=== PATIENT | female | born 1955 | race Caucasian/White ===

== ENCOUNTER 2023-01-11 10:47 | Outpatient (AMB) | payer MEDICARE, MEDICAID, SELFPAY ==
[2023-01-11 11:07] VITALS: BP 135/63; PULSE 91; O2SAT 94; BMI 26.2
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
== END 2023-01-11 11:31 | disposition home or self-care (01) ==
PROVIDERS: PCP Physician Assistant; Visit Provider Nurse Practitioner Family
DX: M51.36 Other intervertebral disc degeneration, lumbar region (principal); M47.817 Spondylosis without myelopathy or radiculopathy, lumbosacral region; M54.16 Radiculopathy, lumbar region; M53.3 Sacrococcygeal disorders, not elsewhere classified; G89.29 Other chronic pain; Z98.890 Other specified postprocedural states
CPT/HCPCS: 99204

== ENCOUNTER → 2023-01-11 10:47 | Outpatient (BNVA) | payer MEDICARE, MEDICAID, SELFPAY | PROVIDERS: PCP Physician Assistant; Visit Provider Nurse Practitioner Family | DX: M51.36 Other intervertebral disc degeneration, lumbar region (principal); M47.817 Spondylosis without myelopathy or radiculopathy, lumbosacral region; M54.16 Radiculopathy, lumbar region; M53.3 Sacrococcygeal disorders, not elsewhere classified; G89.29 Other chronic pain; Z98.890 Other specified postprocedural states | CPT/HCPCS: 99202 ==

== ENCOUNTER 2023-02-23 08:03 | Day surgery (SDC) | payer MEDICARE, MEDICAID, SELFPAY ==
[2023-02-20 16:12] VITALS: BMI 26.1
--- NOTE | 2023-02-22 10:49 | HO.ANESPROP2 ---
HPI - Anesthesia Eval Consult details Narrative: 67yo F for Ganglion Impar Block Last cardiology office visit 08/2022 without symptoms of angina or CHF. No changes to treatment plan. [facility] Active Problems Active Problems: All Active Problems (Updated 01/11/23 @ 12:15 by SAEID العلي) History of pelvic surgery (Acute) Sacroiliac joint pain (Acute) Coccygeal pain, chronic (Acute) Lumbar radiculitis (Acute) Lumbar and sacral spondylarthritis (Acute) Lumbar degenerative disc disease (Acute) Past Medical History Medical History (Updated 02/23/23 @ 08:42 by Kiesha Villasenor RN) COPD (chronic obstructive pulmonary disease) Bilateral cataracts Diabetes Carotid stenosis HLD (hyperlipidemia) Smoker Cardiomyopathy Diabetes CAD (coronary artery disease) History of pelvic fracture Heart disease Arthritis Hypertension Emphysema lung Surgical History Surgical History (Updated 02/23/23 @ 08:41 by Kiesha Villasenor RN) History of back surgery Social History Social History Alcohol intake: current Alcohol intake frequency: holidays/special occasions only Patient Tobacco Use Status: Former Tobacco user Quit Date: 10/20/22 Tobacco use type: Cigarette Substance Use Type: Caffiene Meds Allergies Allergy/AdvReac Type Severity Reaction Status Date / Time No Known Allergies Allergy Verified 01/11/23 11:10 Home Medications Medication Instructions Recorded Confirmed Last Taken Type aspirin 81 mg capsule 81 mg PO DAILY 01/11/23 Unknown History cyclobenzaprine 10 mg tablet 10 mg PO BEDTIME 01/11/23 Unknown History diclofenac potassium 25 mg tablet mg PO 01/11/23 Unknown History ibuprofen 600 mg tablet 600 mg PO Q8H PRN Pain 01/11/23 Unknown History sumatriptan succinate 25 mg tablet 25 mg PO Q2-4H PRN headaches 01/11/23 Unknown History amoxicillin 875 mg-potassium 1 tab PO BID 02/23/23 Unknown History clavulanate 125 mg tablet atorvastatin 80 mg tablet 80 mg PO DAILY 02/23/23 Unknown History azithromycin 250 mg tablet 250 mg PO DAILY 02/23/23 Unknown History bupropion HCl 150 mg 24 hr tablet, 300 mg PO DAILY 02/23/23 Unknown History extended release celecoxib 100 mg capsule 100 mg PO BID PRN pain 02/23/23 Unknown History celecoxib 100 mg capsule 100 mg PO BID PRN pain 02/23/23 Unknown History clindamycin HCl 300 mg capsule 300 mg PO TID 02/23/23 Unknown History ezetimibe 10 mg tablet 10 mg PO DAILY 02/23/23 Unknown History fluticasone fur. 100 mcg-umeclid 1 ea inhalation DAILY 02/23/23 Unknown History 62.5 mcg-vilant 25 mcg inhalat.powder (Trelegy Ellipta) ipratropium 20 mcg-albuterol 100 1 puff inhalation Q4H PRN sob 02/23/23 Unknown History mcg/actuation mist for inhalation (Combivent Respimat) levalbuterol HCl 0.31 mg/3 mL 0.31 mg inhalation Q4H PRN wheezing 02/23/23 Unknown History solution for nebulization lisinopril 5 mg tablet 5 mg PO DAILY 02/23/23 Unknown History lorazepam 0.5 mg tablet 0.5 mg PO DAILY PRN Anxiety 02/23/23 Unknown History metformin 500 mg tablet,extended 500 mg PO QAM 02/23/23 Unknown History release 24 hr metformin 500 mg tablet,extended 500 mg PO QAM 02/23/23 Unknown History release 24 hr mirtazapine 15 mg tablet 15 mg PO BEDTIME 02/23/23 Unknown History roflumilast 500 mcg tablet 500 mcg PO DAILY 02/23/23 Unknown History sumatriptan succinate 25 mg tablet 25 mg PO Q6H PRN migraine 02/23/23 Unknown History varenicline 0.5 mg (11)-1 mg (42) ea PO DIRECTED 02/23/23 Unknown History tablets in a dose pack zolpidem 5 mg tablet 2.5 mg PO BEDTIME PRN Insomnia 02/23/23 Unknown History Exam Exam Date and Time: February 22, 2023 1049 Height,Weight and Vital Signs: Height 5 ft 1 in Weight 62.596 kg Narrative Narrative: ECHO 2020 Nml BiV size and function with no hemodynamically signif valve disease Nuc Stress 2019 unremarkable Assessment and Plan Assessment Anesthesia Assessment: Chart Reviewed
--- NOTE | ~2023-02-23 | FL_ITS ---
EXAMINATION: XR FLUOROSCOPY WITH IMAGES CLINICAL INFORMATION: Ganglion impar. COMPARISON: None available. TECHNIQUE: Fluoroscopy Supervised By: Dr. Ji Mathew. Fluoroscopy Time: 0.1 minute. Cumulative Dose: 3.89 mGy. DAP: 1.04 Gycm2. Images: 3. FINDINGS: Images demonstrate needle placement and contrast injection adjacent to the distal sacrum/coccyx. There may be an old right inferior pubic ramus fracture. FL/FL guidance in OR IMPRESSION: Fluoroscopy guidance for pain management procedure.
[2023-02-23 08:59] VITALS: BP 129/69; PULSE 97; RESP 16; TEMP 37.3; O2SAT 95
[2023-02-23] MEDS: Lactated Ringers 1,000 ML 100 ML IVCONT (09:16)
--- NOTE | 2023-02-23 09:27 | P.CONAN_ITS ---
[facility] Active Problems Active Problems: All Active Problems (Updated 02/23/23 @ 08:42 by Kiesha Villasenor RN) History of pelvic surgery (Acute) Sacroiliac joint pain (Acute) Coccygeal pain, chronic (Acute) Lumbar radiculitis (Acute) Lumbar and sacral spondylarthritis (Acute) Lumbar degenerative disc disease (Acute) Past Medical History Medical History (Updated 02/23/23 @ 08:42 by Kiesha Villasenor RN) COPD (chronic obstructive pulmonary disease) Bilateral cataracts Diabetes Carotid stenosis HLD (hyperlipidemia) Smoker Cardiomyopathy Diabetes CAD (coronary artery disease) History of pelvic fracture Heart disease Arthritis Hypertension Emphysema lung Family History Family history of problems with anesthesia: No Surgical History Surgical History (Updated 02/23/23 @ 08:41 by Kiesha Villasenor RN) History of back surgery History of Problems with Anesthesia: No Social History Social History Alcohol intake: current Alcohol intake frequency: holidays/special occasions only Patient Tobacco Use Status: Former Tobacco user Quit Date: 10/20/22 Tobacco use type: Cigarette Smoked in Last 30 Days: No Use of substances other than those prescribed or required for medical reasons: Yes Substance Use Type: Caffiene Are you DNR?: No Advance Directives: No Advance Directives Information Provided: Yes Meds Allergies Allergy/AdvReac Type Severity Reaction Status Date / Time No Known Allergies Allergy Verified 01/11/23 11:10 Active Medications: Current Medications Lactated Ringer's (Lr) 1,000 mls @ 100 mls/hr IVCONT .Q10H RIGO Last Admin: 02/23/23 09:16 Dose: 100 mls/hr Home Medications Medication Instructions Recorded Confirmed Last Taken Type aspirin 81 mg capsule 81 mg PO DAILY 01/11/23 Unknown History cyclobenzaprine 10 mg tablet 10 mg PO BEDTIME 01/11/23 Unknown History diclofenac potassium 25 mg tablet mg PO 01/11/23 Unknown History ibuprofen 600 mg tablet 600 mg PO Q8H PRN Pain 01/11/23 Unknown History sumatriptan succinate 25 mg tablet 25 mg PO Q2-4H PRN headaches 01/11/23 Unknown History amoxicillin 875 mg-potassium 1 tab PO BID 02/23/23 Unknown History clavulanate 125 mg tablet atorvastatin 80 mg tablet 80 mg PO DAILY 02/23/23 Unknown History azithromycin 250 mg tablet 250 mg PO DAILY 02/23/23 Unknown History bupropion HCl 150 mg 24 hr tablet, 300 mg PO DAILY 02/23/23 Unknown History extended release celecoxib 100 mg capsule 100 mg PO BID PRN pain 02/23/23 Unknown History celecoxib 100 mg capsule 100 mg PO BID PRN pain 02/23/23 Unknown History clindamycin HCl 300 mg capsule 300 mg PO TID 02/23/23 Unknown History ezetimibe 10 mg tablet 10 mg PO DAILY 02/23/23 Unknown History fluticasone fur. 100 mcg-umeclid 1 ea inhalation DAILY 02/23/23 Unknown History 62.5 mcg-vilant 25 mcg inhalat.powder (Trelegy Ellipta) ipratropium 20 mcg-albuterol 100 1 puff inhalation Q4H PRN sob 02/23/23 Unknown History mcg/actuation mist for inhalation (Combivent Respimat) levalbuterol HCl 0.31 mg/3 mL 0.31 mg inhalation Q4H PRN wheezing 02/23/23 Unknown History solution for nebulization lisinopril 5 mg tablet 5 mg PO DAILY 02/23/23 Unknown History lorazepam 0.5 mg tablet 0.5 mg PO DAILY PRN Anxiety 02/23/23 Unknown History metformin 500 mg tablet,extended 500 mg PO QAM 02/23/23 Unknown History release 24 hr metformin 500 mg tablet,extended 500 mg PO QAM 02/23/23 Unknown History release 24 hr mirtazapine 15 mg tablet 15 mg PO BEDTIME 02/23/23 Unknown History roflumilast 500 mcg tablet 500 mcg PO DAILY 02/23/23 Unknown History sumatriptan succinate 25 mg tablet 25 mg PO Q6H PRN migraine 02/23/23 Unknown History varenicline 0.5 mg (11)-1 mg (42) ea PO DIRECTED 02/23/23 Unknown History tablets in a dose pack zolpidem 5 mg tablet 2.5 mg PO BEDTIME PRN Insomnia 02/23/23 Unknown History Exam Exam Date and Time: February 23, 2023926 Height,Weight and Vital Signs: Height 5 ft 1 in Weight 62.596 kg Last Vital Signs Temp 99.1 F 02/23/23 08:59 Pulse 97 02/23/23 08:59 Resp 16 02/23/23 08:59 BP 129/69 02/23/23 08:59 Pulse Ox 95 02/23/23 08:59 O2 Del Method Room Air 02/23/23 08:59 Airway Mallampati Class: III TM Dist: >3cm Neck ROM: Full Partial: Upper Heart: RRR Lungs: CTA Assessment and Plan Assessment Anesthesia Assessment: Anesthesia Plan Discussed Final Anesthetic Review Family History of Problems with Anesthesia: No History of Problems with Anesthesia: No NPO: Yes ASA Class: III Final Preanesthetic Review: Meds/Allgs Chart Reviewed, Consent Obtained/Reviewed and Anes Risks/Benef Reviewed Patient Risk: Low Procedure Risk: Low Anesthetic Plan Anesthetic Plan: MAC: Disposition: Standard PACU
--- NOTE | 2023-02-23 09:48 | MHC.SHP ---
Pre-Procedural Eval Section A Date of Service: 02/23/23 The patient is an INPATIENT: No Changes since office visit: Yes Patient answered all questions The History & Physical has been completed within 30 days and I have reviewed it.: No Section B Chief Complaint: Sacrococcygeal disorders,chronic pain, Details of Present Illness: as above Relevant Family History (Specify if Yes): No Relevant Social History: None Present Medications: see Short Stay Collaborative assessment Medical History: No relevant PMH History of Previous Operations: No relevant previous surgery Allergies: Allergies Allergy/AdvReac Type Severity Reaction Status Date / Time No Known Allergies Allergy Verified 01/11/23 11:10 Review of Systems Sugical H&P ROS: Negative: Constitution, Cardiovascular, Respiratory, Neurological, Psychiatric, Hem-Onc, Allergic/Immunologic, Gastrointestinal, Genitourinary, Musculoskeletal, Integumentary, Endocrine and Eyes/Ears/Nose/Throat Exam Surgical H&P Exam: Normal: HEENT, Normal: Heart, Normal: Lungs, Normal: Extremities, Normal: Abdomen, Normal: Skin and Normal: Neurological Plan Diagnosis/Plan: Unchanged I have reviewed the history and physical and performed a pertinent physical examination on my patient. No changes have occurred unless specified. Time Spent With Patient Time: Total time managing care of this patient today ____ minutes.
[2023-02-23 10:35] VITALS: BP 136/73; PULSE 99; RESP 16; TEMP 36.4; O2SAT 99
--- NOTE | 2023-02-23 10:38 | PM.OP ---
Brief Operative Note Date of Service: 02/23/23 Pre-op diagnosis: coccydynia Post-op diagnosis: same Procedure: ganglion impar block Surgeon: Ji Mathew MD Anesthesia: MAC Was an Supervisor Channel Process used for this Procedure?: No Estimated blood loss (mL): 0 Condition: stable Disposition: PACU
--- NOTE | 2023-02-23 10:44 | P.OP_ITS ---
Operative Note Operative Note Date of Service: 02/23/23 Narrative: therapeutic ganglion impar block. Informed consent was explained thoroughly to the patient. All questions about benefits and risks for the procedure were answered. Patient came to the operating room and was positioned prone on the operating table with the pillow under the pelvis. Time-out was performed delineating correct site and side of the procedure name and date of of the patient, needs for antibiotics which is none a risks of DVT and need for DVT prophylaxis. [employer] monitors were applied and patient was deeply sedated. The lower back and buttocks of the patient were prepped with ChloraPrep prepped and draped with sterile utility towels. C-arm was brought over the operating field and sq picture of patient's Coccygeal spine was demonstrated on the screen. The disc between the 3rd and 2nd coccygeal vertebra was chosen as the target of the needle advancement. The projection of the target to the skin was injected with lidocaine 2%. After that 22 gauge 3-1/2 inch needle was inserted through the skin wheal and advanced to were the disc between the 2nd and 3rd coccygeal vertebra. When the needle gently touched the disc the positio n of the C-arm was changed for lateral view. Under lateral view the needle was advanced to were the retro pelvic space. When the needle cleared 1-2 mm beyond the silhouette of the coccygeal spine on the lateral view and remain strictly in midline position on the anterior posterior view injection of the contrast was performed which delineated retro pelvic space. After that treatment solution co ntaining ropivacaine 0.5% mixed with Kenalog 40 mg total amount of 6 cc was injected into the needle. The needle was withdrawn sterile dressing was applied. The patient tolerated procedure well.
[2023-02-23 10:50] VITALS: BP 147/77; PULSE 93; RESP 18; TEMP 36.6; O2SAT 94
[2023-02-23 11:05] VITALS: BP 137/76; PULSE 89; RESP 20; TEMP 36.5; O2SAT 95
--- NOTE | 2023-02-23 13:26 | HO.POSTANES ---
Post Anesthesia Evaluation Post Anesthesia Evaluation Date of Service: 02/23/23 Vital Signs: Vital Signs Temp Pulse Resp BP Pulse Ox O2 Del Method 02/23/23 11:05 97.7 F 89 20 137/76 95 Room Air 02/23/23 10:50 97.8 F 93 18 147/77 H 94 Room Air 02/23/23 10:35 97.5 F 99 16 136/73 99 Room Air 02/23/23 08:59 99.1 F 97 16 129/69 95 Room Air Anesthesia: Monitored Mental Status: Awake Pain Control: Satisfactory Nausea/Vomiting: None Hydration: Adequate Anesthesia-Related Issues: No Anes. Related Issues
== END 2023-02-23 11:25 | disposition home or self-care (01) ==
PROVIDERS: PCP Pediatrics; Visit Provider Anesthesiology
PROC: (CPT 64999; principal; 2023-02-23 10:00)
DX: M53.3 Sacrococcygeal disorders, not elsewhere classified (principal); G89.29 Other chronic pain; M54.16 Radiculopathy, lumbar region; M47.817 Spondylosis without myelopathy or radiculopathy, lumbosacral region; M51.36 Other intervertebral disc degeneration, lumbar region; J44.9 Chronic obstructive pulmonary disease, unspecified; E11.9 Type 2 diabetes mellitus without complications; I25.10 Atherosclerotic heart disease of native coronary artery without angina pectoris; I10 Essential (primary) hypertension; E78.5 Hyperlipidemia, unspecified; Z79.1 Long term (current) use of non-steroidal anti-inflammatories (NSAID); Z79.82 Long term (current) use of aspirin; Z79.899 Other long term (current) drug therapy; Z79.51 Long term (current) use of inhaled steroids; Z79.84 Long term (current) use of oral hypoglycemic drugs; Z87.891 Personal history of nicotine dependence; Z98.890 Other specified postprocedural states
CPT/HCPCS: 64999; J2250; J2795; J3301; Q9967

== ENCOUNTER → 2023-02-23 08:03 | Outpatient (BNV) | payer MEDICARE, MEDICAID, SELFPAY | PROVIDERS: PCP Pediatrics; Visit Provider Anesthesiology | DX: M53.3 Sacrococcygeal disorders, not elsewhere classified (principal) | CPT/HCPCS: 64999 ==

== ENCOUNTER 2023-03-30 08:48 | Outpatient (AMB) | payer MEDICARE, MEDICAID, SELFPAY ==
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
[2023-03-30 08:55] VITALS: BP 165/78; PULSE 76; O2SAT 96; BMI 27.4
== END 2023-03-30 09:18 | disposition home or self-care (01) ==
PROVIDERS: PCP Physician Assistant; Visit Provider Nurse Practitioner Family
DX: M53.3 Sacrococcygeal disorders, not elsewhere classified (principal); M54.16 Radiculopathy, lumbar region; M47.817 Spondylosis without myelopathy or radiculopathy, lumbosacral region; M51.36 Other intervertebral disc degeneration, lumbar region; M54.51 Vertebrogenic low back pain
CPT/HCPCS: 99214

== ENCOUNTER → 2023-03-30 08:48 | Outpatient (BNVA) | payer MEDICARE, MEDICAID, SELFPAY | PROVIDERS: PCP Physician Assistant; Visit Provider Nurse Practitioner Family | DX: M53.3 Sacrococcygeal disorders, not elsewhere classified (principal); M54.16 Radiculopathy, lumbar region; M47.817 Spondylosis without myelopathy or radiculopathy, lumbosacral region; M51.36 Other intervertebral disc degeneration, lumbar region; M54.51 Vertebrogenic low back pain | CPT/HCPCS: 99212 ==

== ENCOUNTER 2023-05-10 14:37 | Outpatient (AMB) | payer MEDICARE, MEDICAID, SELFPAY ==
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
[2023-05-10 14:50] VITALS: BP 126/59; PULSE 80; O2SAT 100; BMI 26.3
== END 2023-05-10 15:07 | disposition home or self-care (01) ==
PROVIDERS: PCP Physician Assistant; Visit Provider Nurse Practitioner Family
DX: M53.3 Sacrococcygeal disorders, not elsewhere classified (principal); M47.817 Spondylosis without myelopathy or radiculopathy, lumbosacral region; M51.36 Other intervertebral disc degeneration, lumbar region; M46.1 Sacroiliitis, not elsewhere classified
CPT/HCPCS: 99214

== ENCOUNTER → 2023-05-10 14:37 | Outpatient (BNVA) | payer MEDICARE, MEDICAID, SELFPAY | PROVIDERS: PCP Physician Assistant; Visit Provider Nurse Practitioner Family | DX: M53.3 Sacrococcygeal disorders, not elsewhere classified (principal); M47.817 Spondylosis without myelopathy or radiculopathy, lumbosacral region; M51.36 Other intervertebral disc degeneration, lumbar region; M46.1 Sacroiliitis, not elsewhere classified | CPT/HCPCS: 99212 ==

== ENCOUNTER 2023-06-01 05:54 | Day surgery (SDC) | payer MEDICARE, MEDICAID, SELFPAY ==
[2023-05-30 14:04] VITALS: BMI 26.3
--- NOTE | 2023-05-31 10:19 | HO.ANESPROP2 ---
Documented by User: Beckie Pelaez NP 05/31/23 10:22 HPI - Anesthesia Eval Consult details Narrative: 67yo F for Left Therapeutic Sacroiliac Joint Steroid Injection s/p ganglion impar block 02/2023 with MAC Follows [facility]. Stable at last office visit 03/2023 CAD with NSTEMI 2018, Hx takatsubo 2018 (EF normalized) PMFSH Active Problems Active Problems: All Active Problems (Updated 05/31/23 @ 08:35 by Cari Adan) Sacroiliitis (Acute) Vertebrogenic low back pain (Acute) History of pelvic surgery (Acute) Sacroiliac joint pain (Acute) Coccygeal pain, chronic (Acute) Lumbar radiculitis (Acute) Lumbar and sacral spondylarthritis (Acute) Lumbar degenerative disc disease (Acute) Past Medical History Medical History (Updated 05/31/23 @ 08:35 by Cari Adan) NSTEMI (non-ST elevated myocardial infarction) COPD (chronic obstructive pulmonary disease) Bilateral cataracts Diabetes Carotid stenosis HLD (hyperlipidemia) Smoker Cardiomyopathy Diabetes CAD (coronary artery disease) History of pelvic fracture Heart disease Arthritis Hypertension Emphysema lung Family History Family history of problems with anesthesia: No Surgical History Surgical History (Updated 05/30/23 @ 13:53 by Caitlyn Vergara RN) History of surgery History of back surgery History of Problems with Anesthesia: No Social History Social History Alcohol intake: current Alcohol intake frequency: does not drink Patient Tobacco Use Status: Former Tobacco user Quit Date: 10/20/22 Tobacco use type: Cigarette Substance Use Type: Caffiene Are you DNR?: No Advance Directives: No Advance Directives Information Provided: Yes Nutrition Risks: No Nutritional Risk Meds Allergies Allergy/AdvReac Type Severity Reaction Status Date / Time No Known Allergies Allergy Verified 05/10/23 14:52 Home Medications Medication Instructions Recorded Confirmed Last Taken Type aspirin 81 mg capsule 81 mg PO DAILY 01/11/23 05/30/23 05/25/23 History cyclobenzaprine 10 mg tablet 10 mg PO BEDTIME 01/11/23 Unknown History diclofenac potassium 25 mg tablet mg PO 01/11/23 Unknown History ibuprofen 600 mg tablet 600 mg PO Q8H PRN Pain 01/11/23 05/24/23 History atorvastatin 80 mg tablet 80 mg PO DAILY 02/23/23 05/30/23 Unknown History bupropion HCl 150 mg 24 hr tablet, 300 mg PO DAILY 02/23/23 05/30/23 Unknown History extended release celecoxib 100 mg capsule 100 mg PO BID PRN pain 02/23/23 05/30/23 05/31/23 History ezetimibe 10 mg tablet 10 mg PO DAILY 02/23/23 05/30/23 Unknown History fluticasone fur. 100 mcg-umeclid 1 ea inhalation DAILY 02/23/23 05/30/23 Unknown History 62.5 mcg-vilant 25 mcg inhalat.powder (Trelegy Ellipta) ipratropium 20 mcg-albuterol 100 1 puff inhalation Q4H PRN sob 02/23/23 05/30/23 Unknown History mcg/actuation mist for inhalation (Combivent Respimat) levalbuterol HCl 0.31 mg/3 mL 0.31 mg inhalation Q4H PRN wheezing 02/23/23 05/30/23 Unknown History solution for nebulization lisinopril 5 mg tablet 5 mg PO DAILY 02/23/23 05/30/23 Unknown History metformin 500 mg tablet,extended 500 mg PO QAM 02/23/23 05/30/23 Unknown History release 24 hr mirtazapine 15 mg tablet 15 mg PO BEDTIME 02/23/23 Unknown History roflumilast 500 mcg tablet 500 mcg PO DAILY 02/23/23 05/30/23 Unknown History sumatriptan succinate 25 mg tablet 25 mg PO Q6H PRN migraine 02/23/23 05/30/23 Unknown History varenicline 0.5 mg (11)-1 mg (42) ea PO DIRECTED 02/23/23 Unknown History tablets in a dose pack zolpidem 5 mg tablet 2.5 mg PO BEDTIME PRN Insomnia 02/23/23 05/30/23 Unknown History omeprazole 20 mg capsule,delayed 20 mg PO DAILY 05/30/23 05/30/23 Unknown History release Exam Height,Weight and Vital Signs: Height 5 ft 1 in Weight 63.049 kg Narrative Narrative: EKG 03/2023 NSR @ 76 ECHO 2020 Nml BiV size and function without hemodynamically significant valve disease Assessment and Plan Assessment Anesthesia Assessment: Chart Reviewed Final Anesthetic Review Family History of Problems with Anesthesia: No History of Problems with Anesthesia: No Documented by User: Aguila Hill MD 06/01/23 07:42 [facility] Past Medical History Medical History (Updated 05/31/23 @ 08:35 by Cari Adan) NSTEMI (non-ST elevated myocardial infarction) COPD (chronic obstructive pulmonary disease) Bilateral cataracts Diabetes Carotid stenosis HLD (hyperlipidemia) Smoker Cardiomyopathy Diabetes CAD (coronary artery disease) History of pelvic fracture Heart disease Arthritis Hypertension Emphysema lung Functional capacity: independent ambulation Surgical History Surgical History (Updated 05/30/23 @ 13:53 by Caitlyn Vergara RN) History of surgery History of back surgery Social History Social History Alcohol intake: current Alcohol intake frequency: does not drink Patient Tobacco Use Status: Former Tobacco user Quit Date: 10/20/22 Tobacco use type: Cigarette Substance Use Type: Caffiene Are you DNR?: No Advance Directives: No Advance Directives Information Provided: Yes Nutrition Risks: No Nutritional Risk Meds Allergies Allergy/AdvReac Type Severity Reaction Status Date / Time No Known Allergies Allergy Verified 05/10/23 14:52 Home Medications Medication Instructions Recorded Confirmed Last Taken Type aspirin 81 mg capsule 81 mg PO DAILY 01/11/23 05/30/23 05/25/23 History cyclobenzaprine 10 mg tablet 10 mg PO BEDTIME 01/11/23 Unknown History diclofenac potassium 25 mg tablet mg PO 01/11/23 Unknown History ibuprofen 600 mg tablet 600 mg PO Q8H PRN Pain 01/11/23 05/24/23 History atorvastatin 80 mg tablet 80 mg PO DAILY 02/23/23 05/30/23 Unknown History bupropion HCl 150 mg 24 hr tablet, 300 mg PO DAILY 02/23/23 05/30/23 Unknown History extended release celecoxib 100 mg capsule 100 mg PO BID PRN pain 02/23/23 05/30/23 05/31/23 History ezetimibe 10 mg tablet 10 mg PO DAILY 02/23/23 05/30/23 Unknown History fluticasone fur. 100 mcg-umeclid 1 ea inhalation DAILY 02/23/23 05/30/23 Unknown History 62.5 mcg-vilant 25 mcg inhalat.powder (Trelegy Ellipta) ipratropium 20 mcg-albuterol 100 1 puff inhalation Q4H PRN sob 02/23/23 05/30/23 Unknown History mcg/actuation mist for inhalation (Combivent Respimat) levalbuterol HCl 0.31 mg/3 mL 0.31 mg inhalation Q4H PRN wheezing 02/23/23 05/30/23 Unknown History solution for nebulization lisinopril 5 mg tablet 5 mg PO DAILY 02/23/23 05/30/23 Unknown History metformin 500 mg tablet,extended 500 mg PO QAM 02/23/23 05/30/23 Unknown History release 24 hr mirtazapine 15 mg tablet 15 mg PO BEDTIME 02/23/23 Unknown History roflumilast 500 mcg tablet 500 mcg PO DAILY 02/23/23 05/30/23 Unknown History sumatriptan succinate 25 mg tablet 25 mg PO Q6H PRN migraine 02/23/23 05/30/23 Unknown History varenicline 0.5 mg (11)-1 mg (42) ea PO DIRECTED 02/23/23 Unknown History tablets in a dose pack zolpidem 5 mg tablet 2.5 mg PO BEDTIME PRN Insomnia 02/23/23 05/30/23 Unknown History omeprazole 20 mg capsule,delayed 20 mg PO DAILY 05/30/23 05/30/23 Unknown History release Exam Airway Mallampati Class: II Neck ROM: Full Partial: Upper Heart: ok Lungs: ok Assessment and Plan Assessment Anesthesia Assessment: Anesthesia Plan Discussed Final Anesthetic Review NPO: Yes ASA Class: III Final Preanesthetic Review: No Changes in Pt Med Stat, Meds/Allgs Chart Reviewed, Consent Obtained/Reviewed and Anes Risks/Benef Reviewed Patient Risk: Intermediate Procedure Risk: Intermediate Anesthetic Plan Anesthetic Plan: MAC: and Agree w/ Assess. and Plan Disposition: Standard PACU
--- NOTE | 2023-05-31 14:49 | MHC.SHP ---
Pre-Procedural Eval Section A Date of Service: 05/31/23 The patient is an INPATIENT: No Changes since office visit: Yes Patient answered all questions The History & Physical has been completed within 30 days and I have reviewed it.: No Section B Chief Complaint: Sacrococcygeal disorders,Sacroiliitis, Details of Present Illness: as above Relevant Family History (Specify if Yes): No Relevant Social History: None Present Medications: None Medical History: No relevant PMH History of Previous Operations: No relevant previous surgery Allergies: Allergies Allergy/AdvReac Type Severity Reaction Status Date / Time No Known Allergies Allergy Verified 05/10/23 14:52 Review of Systems Sugical H&P ROS: Negative: Constitution, Cardiovascular, Respiratory, Neurological, Psychiatric, Hem-Onc, Allergic/Immunologic, Gastrointestinal, Genitourinary, Musculoskeletal, Integumentary, Endocrine and Eyes/Ears/Nose/Throat Exam Surgical H&P Exam: Normal: HEENT, Normal: Heart, Normal: Lungs, Normal: Extremities, Normal: Abdomen, Normal: Skin and Normal: Neurological Plan Diagnosis/Plan: Unchanged I have reviewed the history and physical and performed a pertinent physical examination on my patient. No changes have occurred unless specified. Time Spent With Patient Time: Total time managing care of this patient today ____ minutes.
--- NOTE | ~2023-06-01 | FL_ITS ---
EXAMINATION: XR FLUOROSCOPY WITH IMAGES CLINICAL INFORMATION: SI joint injection, left. COMPARISON: None available. TECHNIQUE: Fluoroscopy Supervised By: Dr. Ji Mathew. Fluoroscopy Time: 0.2 minutes. Cumulative Dose: 4.17 mGy. DAP: 0.738 Gycm2. Images: 2. FINDINGS: Images demonstrate needle placement and contrast injection over the left sacroiliac joint FL/FL guidance in OR IMPRESSION: Fluoroscopy guidance for left sacroiliac joint injection.
[2023-06-01 06:02] VITALS: BMI 28.7
[2023-06-01 06:15] LABS: Glucose, Whole Blood 163 mg/dL (60-115)
[2023-06-01 06:16] VITALS: BP 152/65; PULSE 79; RESP 23; TEMP 36.8; O2SAT 95
[2023-06-01] MEDS: Lactated Ringers 1,000 ML 50 ML IVCONT (06:31)
--- NOTE | 2023-06-01 07:16 | MHC.SHP ---
Pre-Procedural Eval Section A Date of Service: 06/01/23 The patient is an INPATIENT: No Changes since office visit: Yes Patient answered all questions The History & Physical has been completed within 30 days and I have reviewed it.: No Section B Chief Complaint: Sacrococcygeal disorders,Sacroiliitis, Details of Present Illness: as above Relevant Family History (Specify if Yes): No Relevant Social History: None Present Medications: None Medical History: No relevant PMH History of Previous Operations: No relevant previous surgery Allergies: Allergies Allergy/AdvReac Type Severity Reaction Status Date / Time No Known Allergies Allergy Verified 05/10/23 14:52 Review of Systems Sugical H&P ROS: Negative: Constitution, Cardiovascular, Respiratory, Neurological, Psychiatric, Hem-Onc, Allergic/Immunologic, Gastrointestinal, Genitourinary, Musculoskeletal, Integumentary, Endocrine and Eyes/Ears/Nose/Throat Exam Surgical H&P Exam: Normal: HEENT, Normal: Heart, Normal: Lungs, Normal: Extremities, Normal: Abdomen, Normal: Skin and Normal: Neurological Plan Diagnosis/Plan: Unchanged I have reviewed the history and physical and performed a pertinent physical examination on my patient. No changes have occurred unless specified. Time Spent With Patient Time: Total time managing care of this patient today ____ minutes.
--- NOTE | 2023-06-01 07:54 | PM.OP ---
Brief Operative Note Date of Service: 06/01/23 Pre-op diagnosis: sacroiliitis, sacroiliac dysfunction left. Post-op diagnosis: same Procedure: Sacroiliac joint steroid injection left. Surgeon: Ji Mathew MD Anesthesia: MAC Was an [employer] used for this Procedure?: No Estimated blood loss (mL): 1 Pathology: none sent Condition: stable Disposition: PACU
--- NOTE | 2023-06-01 07:55 | W.PM.OPN ---
Operative Note Operative Note Date of Service: 06/01/23 Narrative: Therapeutic sacroiliac joint injection liz Aly is a very pleasant 67 years old female who came today in the operating room for left sacroiliac joint injection. Previously she received ganglion impar injection to treat her coccydynia however now she reports pain more related to sacroiliac joint with provocative signs positive on physical exam. Informed consent was explained and patient was explained risks and benefits of the procedure. Risks of bleeding infection peripheral nerve damage were explained to the patient. After that the patient was taken to the operating room positioned prone On the operating table [employer] monitors were applied and patient was sedated. Time-out was performed delineating correct site and side of the procedure name and date of of the patient, risk of fire, need for antibiotic prophylaxis which is none, need for DVT prophylaxis which is none, Lower back and upper buttocks of the patient were prepped with ChloraPrep and draped with sterile utility towels. C-arm was brought over operating field and left sacroiliac joint was demonstrated on the screen in AP view. Banquet Director of the machine was tilted contralateral 18 degrees and anterior portion of the sacroiliac joint was superimposed on the posterior portion of sacroiliac joint in its central portion. The needle insertion point was chosen as the medial point to the joint and it was injected with lidocaine 2% 2 cc. After that 22 gauge 3-1/2 inch needle was inserted through the skin wheal and was advanced to were the sacroiliac joint on the oblique view. Unfortunately I was not able to sense the capsule of the joint, whenever the needle went in the projection of the sacroiliac joint I felt bones resistance. After that attention was concentrated instead of the most lower portion of the sacroiliac joint on AP view. The most medial silhouette of the joint was chosen as the target. 22 gauge 3-1/2 inch needle was inserted through the skin and advanced toward the target under intermittent AP view. When needle entered the capsule of the joint injection of the contrast was performed delineating intra articular spread of the contrast. After 5 cc of solution containing 4 mL of ropivacaine 0.5% mixed with Kenalog 40 mg was performed into the joint. After that needle was removed Band-Aid was applied. The patient will tolerate procedure well. She was taken outside of the operating room to recovery room where she recovered uneventfully.
[2023-06-01 07:59] VITALS: BP 121/53; PULSE 76; RESP 12; TEMP 36.8; O2SAT 93
[2023-06-01 08:14] VITALS: BP 129/75; PULSE 80; RESP 16; TEMP 36.8; O2SAT 95
== END 2023-06-01 08:34 | disposition home or self-care (01) ==
PROVIDERS: PCP Pediatrics; Visit Provider Anesthesiology
PROC: 3E0U33Z Introduction of Anti-inflammatory into Joints, Percutaneous Approach (ICD-10-PCS; CPT 27096; principal; 2023-06-01 07:30)
DX: M46.1 Sacroiliitis, not elsewhere classified (principal); M53.3 Sacrococcygeal disorders, not elsewhere classified; G89.29 Other chronic pain; M47.817 Spondylosis without myelopathy or radiculopathy, lumbosacral region; M51.36 Other intervertebral disc degeneration, lumbar region; J44.9 Chronic obstructive pulmonary disease, unspecified; J43.9 Emphysema, unspecified; I10 Essential (primary) hypertension; I25.10 Atherosclerotic heart disease of native coronary artery without angina pectoris; I42.9 Cardiomyopathy, unspecified; E78.5 Hyperlipidemia, unspecified; E11.9 Type 2 diabetes mellitus without complications; Z79.84 Long term (current) use of oral hypoglycemic drugs; Z79.82 Long term (current) use of aspirin; Z79.1 Long term (current) use of non-steroidal anti-inflammatories (NSAID); Z79.899 Other long term (current) drug therapy; Z98.890 Other specified postprocedural states; Z87.891 Personal history of nicotine dependence
CPT/HCPCS: G0260; 82947; J2250; J2704; J2795; J3010; J3301; Q9967

== ENCOUNTER → 2023-06-01 05:54 | Outpatient (BNV) | payer MEDICARE, MEDICAID, SELFPAY | PROVIDERS: PCP Pediatrics; Visit Provider Anesthesiology | DX: M46.1 Sacroiliitis, not elsewhere classified (principal); M53.3 Sacrococcygeal disorders, not elsewhere classified | CPT/HCPCS: 27096 ==

== ENCOUNTER 2024-09-22 08:18 | Outpatient (AMB) | payer MEDICARE, MEDICAID, SELFPAY ==
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
[2024-09-22 08:29] VITALS: BP 150/67; PULSE 68; O2SAT 97; BMI 23.1
--- OUTSIDE RECORDS SUMMARY | 2024-09-22 08:40 | XMS_ITS | Continuity of Care Document ---
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 - Active Nasacort AQ 55 mcg Nasal Orrick Aerosol Inhale two sprays via nostril daily - Active Advair Diskus 100 mcg-50 mcg/Dose for Inhalation One puff by mouth twice per day, then rinse - Active ALBUTEROL 90MCGAEROSOL Take 2 puffs by m outh every 4-6 hours PRN - Active Nortriptyline 10 mg Cap Take one tablet by mouth at bedtime. - Active Darvocet-N 100 100 mg-650 mg Tab Take 1-2 Tablets by mouth every 4-6 hours as needed - Active Procedures Procedure Date Offic/outpt E&m Estab Low-mod 6 Inf Agt Antig Detect Immunoas; 06 Offic/outpt E&m Estab Low-mod [address]; Hg/pltlt Ct Auto/compl 06 Comp Metabolic Panel Lipid Panel Thyroid Stim Hormone Venipuncture Thyroxine; Free Pneumococcal Polysacch Vac-eliz 06 FLU VACCINE NO PRESERV 3 & > Ecg-routine 12 Lead; W/intrpt 6 Spiromtry W/gaycg-ol-ntrpt García 06 Preven Meds E&m Estab Pt; 40-6 06 Offic/outpt E&m Estab Mod-hi 2 06 Ua Dip Stik/tablet; Wo Micro A 06 Immuniz Admin; 1/combo Vacc/to Immuniz Admin; 2/> Sing/comb V 06 Inj Ceftriaxone Sodium Per 250 06 Methylprednisolone Acetate-80 6 Offic/outpt E&m New Mod Sever 6 Admin Inj,diag,ther,or Prophyl 06 Admin Inj,diag,ther,or Prophyl 06 Bronchospsm Eval: Foster-bronch Advance Directives Directive Yes / No Effective Date File Name No Information Encounters Encounter Description Practice Location Reason(s) For Visit Diagnoses Date Provider Providers Copied on Encounter Medical [facility], [address] [facility], [place], [place], [id number] , tel: [phone] No Information 0 No Information Offic/outpt E&m [facility], [address] [facility], [place], [place], [id number] , tel: [phone] [facility] URI - UPPER RESP. INFECTION 6 Eric Mitchell. [address] [place] [address], [id number], [place]. tel:[phone] Referring Provider: Stephen Reyes, [address] [place] [address], [place], [address] . tel:[phone] Offic/outpt E&m [facility], [address] [facility], [place], [place], [id number] , tel: [phone] [facility] URI - UPPER RESP. INFECTION 6 Eric Mitchell. [address] [place] [address], [id number], . tel:[phone] Referring Provider: Stephen Reyes, [address] [place] [address], [address] . tel:[phone] [facility], [address], [place], [place], [id number] , tel: [phone] [facility] No Information Oct-2 6-200 6 Eric Mitchell. [address] [place] [address], [id number], [place]. tel:[phone] Referring Provider: Stephen Reyes, [address] [place] [address], [address] [place] [address] . tel:[phone] Preven Meds E&m Estab Pt; 40-6 [facility], [address], [place], [place], [id number] , [place] tel: [phone] [facility] HTN, BENIGNASTHMA, UNSPECIFIEDMENOPAU SHANEKA SYMPTOMSHEADACHE,T ENSIONHNP W/MYELOPATHY, LUMBAR Oct-1 9-200 6 Eric Mitchell. [address] [place] [address], [id number], [place]. [phone] Referring Provider: Stephen Reyes, [address] [place] [address], [id number] . tel:[phone] Offic/outpt E&m [facility], [address], [place], [place], [id number] , [place] tel: [phone] [facility] ASTHMA, UNSPECIFIEDHTN, BENIGNHNP W/MYELOPATHY, LUMBAR Sep-0 7-200 6 Eric Mitchell. [address] [place] [address], [id number], [place]. tel:[phone] Referring Provider: Stephen Reyes, [address] [place] [address], [id number] . tel:[phone] Family History Family Member Type Diagnosis Age At Onset No Information Immunizations Vaccine Date Status Comments Influenza Vaccine administered Source: Ne w Immunization Record Payers Payer name Insurance type Covered democrat ID Authoriza tion(s) [employer] Choice POS / POS II CI [id number] Social History Type Description Quantity Date Captured Comments Alcohol Use Details Unknown Caffeine Use Details Unknown 2 cups per day Tobacco Use Status No Information Smoking Status No Information Sex Female Chief Complaint And Reason For Visit No Information Reason For Referral Reason For Referral No Information History Of Present Illness Encounter Date Complaint History Of Prese nt Illness No Information Functional Status Date Functional Assessmen t No Information Instructions Date Instruction Additional Infor mation No Information Assessments Type Assessment Date No Information Patient Care Teams Name Effective Dates (start - stop) Status Members No Information
== END 2024-09-22 09:06 | disposition home or self-care (01) ==
LOC: HO.PMC 08:18
PROVIDERS: PCP Pediatrics; Visit Provider Nurse Practitioner Family
DX: M47.812 Spondylosis without myelopathy or radiculopathy, cervical region (principal); M54.2 Cervicalgia; G89.29 Other chronic pain; M51.369 Other intervertebral disc degeneration, lumbar region without mention of lumbar back pain or lower extremity pain; M47.817 Spondylosis without myelopathy or radiculopathy, lumbosacral region; M53.3 Sacrococcygeal disorders, not elsewhere classified; M81.0 Age-related osteoporosis without current pathological fracture; M46.1 Sacroiliitis, not elsewhere classified
CPT/HCPCS: 99214; G2211

== ENCOUNTER 2024-09-22 08:18 | Outpatient (REF) | payer MEDICARE, MEDICAID, SELFPAY ==
--- NOTE | ~2024-09-22 | XR_ITS ---
CLINICAL HISTORY: M51.36 - Other intervertebral disc degeneration, lumbar region Lumbar spine 5 with oblique views: Comparison: None. Findings: Calcified atherosclerotic plaque is present in the abdominal aorta. There is 30% superior vertebral plate compression fracture of T11, age undetermined. There is mild scoliosis with moderate degenerative narrowing of L3-4 disc space. There is advanced degenerative narrowing of T12-L1 disc space and moderate narrowing of L4-L5 disc space. There is posterior facet hypertrophy at L4-5 and L5-S1. No spondylolisthesis. Impression: 1. 30% superior endplate compression fracture of T11, age undetermined without old films. 2. Advanced degenerative narrowing of the L3-4 disc space with discogenic vertebral endplate sclerosis. 3. Possible spondylolysis without spondylolisthesis at L4 on the left. This document has been electronically signed by: Alex Marroquin MD on 09/22/2024 13:17:25
--- NOTE | ~2024-09-22 | XR_ITS ---
CLINICAL HISTORY: M47.812 - Spondylosis without myelopathy or radiculopathy, cervical region 7-view cervical spine Comparison: None Findings: No fractures or dislocations. Normal vertebral body alignment. There is uncovertebral joint and facet hypertrophy with disc space narrowing at C4-5. There is moderate bilateral foraminal stenosis at C3-4, C4-5 and C5-6. Calcified plaque is present in the bilateral carotid bifurcations. Prevertebral soft tissues, hypopharynx and proximal tracheal air column are normal. Lung apices unremarkable Impression: Degenerative spondylosis with no acute skeletal abnormality. This document has been electronically signed by: Alex Marroqiun MD on 09/22/2024 13:27:34
== END 2024-09-22 08:19 | disposition home or self-care (01) ==
LOC: HO.XRAY 08:18
PROVIDERS: PCP Pediatrics; Visit Provider Nurse Practitioner Family
DX: M48.54XA Collapsed vertebra, not elsewhere classified, thoracic region, initial encounter for fracture (principal); M51.369 Other intervertebral disc degeneration, lumbar region without mention of lumbar back pain or lower extremity pain; M47.817 Spondylosis without myelopathy or radiculopathy, lumbosacral region; M53.3 Sacrococcygeal disorders, not elsewhere classified; M47.812 Spondylosis without myelopathy or radiculopathy, cervical region; M54.2 Cervicalgia; G89.29 Other chronic pain; M46.1 Sacroiliitis, not elsewhere classified; M81.0 Age-related osteoporosis without current pathological fracture
CPT/HCPCS: 72050; 72110; 99212

== ENCOUNTER → 2024-09-22 09:14 | Outpatient (BNV) | payer MEDICARE, MEDICAID, SELFPAY | PROVIDERS: PCP Pediatrics; Visit Provider Radiology Diagnostic Radiology | DX: M47.812 Spondylosis without myelopathy or radiculopathy, cervical region (principal); M51.369 Other intervertebral disc degeneration, lumbar region without mention of lumbar back pain or lower extremity pain; S22.088A Other fracture of T11-T12 vertebra, initial encounter for closed fracture | CPT/HCPCS: 72050; 72110 ==

== ENCOUNTER 2024-10-20 11:27 | Outpatient (AMB) | payer MEDICARE, MEDICAID, SELFPAY ==
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
[2024-10-20 11:33] VITALS: BP 132/63; PULSE 70; O2SAT 98; BMI 23.2
--- OUTSIDE RECORDS SUMMARY | 2024-10-20 12:16 | XMS_ITS | Continuity of Care Document ---
Author Organization [facility] Address [address] [place] [address] Phone Care Team Providers Care Manager Of Clinical Name Role Phone No Information Unavailable Unavailable Allergies, Adverse Reactions, Alerts Substance Reaction Status Criticality hydrocodone GI Upset Active No Information Medications Medication Instructions Dosage Effective Dates (start - stop) Status Comments PSEUDOEPHEDRINE-CHLORPH ENIRAMI 100MG-12MGCPMP 24HR Take one tablet by mouth twice daily as needed. - Active Nasacort AQ 55 mcg Nasal [place] Aerosol Inhale two sprays via nostril daily [...] > Ecg-routine 12 Lead; W/intrpt 6 Spiromtry W/fsjbr-fu-lrtmt García 06 Preven Meds E&m Estab Pt; [...] Date Provider Providers Copied on Encounter Medical [facility], [address] [facility], [place], [place], [id number] , tel: [phone] No Information 0 No Information Offic/outpt E&m [facility], [address] [facility], [place], [place], [id number] , tel: [phone] [facility] URI - UPPER RESP. INFECTION 6 Eric Mitchell. [address] [place] [address], [id number], [place]. tel:[phone] Referring Provider: Stephen Reyes, [address] [place] [address], [place], [address] . tel:[phone] Offic/outpt E&m [facility], [address] [facility], [place], [place], [id number] , tel: [phone] [facility] URI - UPPER RESP. INFECTION 6 Eric Mitchell. [address] [place] [address], [id number], . tel:[phone] Referring Provider: Stephen Reyes, [address] [place] [address], [id number] . tel:[phone] [facility], [address], [place], [place], [id number] , tel: [phone] [facility] No Information Oct-2 6-200 6 Eric Mitchell. [address] [place] [address], [id number], [place]. tel:[phone] Referring Provider: Stephen Reyes, [address] [place] [address], [address] [place] [address] . tel:[phone] Preven Meds E&m Estab Pt; 40-6 [facility], [address], [place], [place], [id number] , [place] tel: [phone] [facility] HTN, BENIGNASTHMA, UNSPECIFIEDMENOPAU SHANEKA SYMPTOMSHEADACHE,T ENSIONHNP W/MYELOPATHY, LUMBAR Oct-1 9-200 6 Eric Mitchell. [address] [place] [address], [id number], [place]. [phone] Referring Provider: Stephen Reyes, [address] [place] [address], [address] . tel:[phone] Offic/outpt E&m [facility], [address], [place], [place], [id number] , [place] tel: [phone] [facility] ASTHMA, UNSPECIFIEDHTN, BENIGNHNP W/MYELOPATHY, LUMBAR Sep-0 7-200 6 Eric Mitchell. [address] [place] [address], [id number], [place]. tel:[phone] Referring Provider: Stephen Reyes, [address] [place] [address], [id number] . tel:[phone] Family History Family Member Type Diagnosis Age At Onset No Information Immunizations Vaccine Date Status Comments Influenza Vaccine administered Source: Ne w Immunization Record Payers Payer name Insurance type Covered libertarian ID Authoriza tion(s) Aetna Choice POS / [...]
== END 2024-10-20 11:55 | disposition home or self-care (01) ==
LOC: HO.PMC 11:27
PROVIDERS: PCP Pediatrics; Visit Provider Nurse Practitioner Family
DX: M51.369 Other intervertebral disc degeneration, lumbar region without mention of lumbar back pain or lower extremity pain (principal); M47.817 Spondylosis without myelopathy or radiculopathy, lumbosacral region; M54.16 Radiculopathy, lumbar region; M54.51 Vertebrogenic low back pain; M81.0 Age-related osteoporosis without current pathological fracture; M43.06 Spondylolysis, lumbar region
CPT/HCPCS: 99214; G2211

== ENCOUNTER → 2024-10-20 11:27 | Outpatient (BNVA) | payer MEDICARE, MEDICAID, SELFPAY | PROVIDERS: PCP Pediatrics; Visit Provider Nurse Practitioner Family | DX: M51.360 Other intervertebral disc degeneration, lumbar region with discogenic back pain only (principal); M47.817 Spondylosis without myelopathy or radiculopathy, lumbosacral region; M54.16 Radiculopathy, lumbar region; M54.51 Vertebrogenic low back pain; M81.0 Age-related osteoporosis without current pathological fracture; M43.06 Spondylolysis, lumbar region | CPT/HCPCS: 99212 ==

== ENCOUNTER 2024-10-24 14:58 | Outpatient (REF) | payer MEDICARE, MEDICAID, SELFPAY ==
--- NOTE | ~2024-10-24 | MR_ITS ---
EXAMINATION: MR LUMBAR SPINE WITHOUT CONTRAST CLINICAL INFORMATION: Low back pain; other intervertebral disc degeneration, lumbar region. COMPARISON: No prior MRI. Correlation made with lumbar radiographs 09/22/2024. TECHNIQUE: Multiplanar multisequence MR imaging of the lumbar spine was done without IV contrast. Examination was performed on a 1.5 Erin Siemens magnet, utilizing standard sequences. FINDINGS: CORONAL ALIGNMENT: -There is a gentle right convex thoracolumbar scoliosis. SAGITTAL ALIGNMENT: - There is a normal lordosis. -There are no significant subluxations. LUMBOSACRAL JUNCTION: -Normal. There are 5 [id number]-hsk-ijlscuj lumbar-type vertebral bodies. VERTEBRAL BODIES/BONE MARROW: -There are prominent edematous type endplate changes at L3-4 with associated severe disc degeneration. -There are mild edematous endplate changes at L2-3. There are fatty type endplate changes at L4-5. -There are no compression deformities. There are no suspicious bone lesions. DISCS: -Severe loss of height and signal at L3-4 and L4-5. -Moderate loss of height and signal at L2-3. There is otherwise only mild loss. SPINAL CANAL: -No abnormal developmental findings. CONUS MEDULLARIS: -Terminates at L1. Morphology and signal is normal. INTRADURAL NERVE ROOTS: - Normal distribution within the thecal sac. No abnormal clumping or nerve root mass. Axial Disc Space Images: T12-L1: No central canal or neural foraminal narrowing. L1-L2: No central canal or neural foraminal narrowing. L2-L3: Shallow diffuse concentric disc bulge present, indenting upon the ventral thecal sac, however there is no significant central canal narrowing. Mild facet hypertrophy bilaterally. There is mild left greater than right neural foraminal narrowing. L3-L4: Concentric disc osteophytic bulge present, extending into both foraminal zones. Mild hypertrophic degenerative facet changes bilaterally, with mild posterior ligamentous thickening/infolding. There is mild central canal narrowing, mild bilateral subarticular recess narrowing, and moderate bilateral neural foraminal stenosis. L4-L5: There is a concentric disc bulge present extending into both foraminal zones right greater than left, moderate hypertrophic facet changes right greater than left, mild posterior ligamentous thickening/infolding, with combination of findings resulting in mild central canal narrowing, mild right subarticular recess narrowing, moderate right and mild left neural foraminal narrowing. L5-S1: There is no significant central canal or neural foraminal narrowing. Mild hypertrophic degenerative facet changes. There is shallow diffuse disc bulge with central annular fissure. IMAGED SI JOINTS: -Moderate left greater than right degenerative arthrosis. PARAVERTEBRAL AND INCLUDED EXTRASPINAL SOFT TISSUES: -Aorta is normal in caliber. Imaged kidneys appear normal. No adenopathy or mass. MR/MR lumbar spine wo con IMPRESSION: 1. Moderate multilevel lumbar spondylosis as discussed above. There is no high-grade central canal or subarticular recess stenosis. There is scattered neural foraminal narrowing, most significant at L3-4 bilaterally. See above for details. 2. There are prominent edematous endplate changes at L3-4, with lesser changes at L2-3. 3. There is severe disc degeneration present at L3-4 and L4-5. Electronically signed by: Jonathan Link MD 10/24/2024 04:02 PM EDT
--- OUTSIDE RECORDS SUMMARY | 2024-10-24 15:02 | XMS_ITS | Continuity of Care Document ---
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 - Active Nasacort AQ 55 mcg Nasal [place] Aerosol Inhale two sprays via nostril daily [...] > Ecg-routine 12 Lead; W/intrpt 6 Spiromtry W/jojnd-cr-uygam García 06 Preven Meds E&m Estab Pt; [...] Date Provider Providers Copied on Encounter Medical [facility], [address] [facility], [place], [place], [id number] , tel: [phone] No Information 0 No Information Offic/outpt E&m [facility], [address] [facility], [place], [place], [id number] , tel: [phone] [facility] URI - UPPER RESP. INFECTION 6 Eric Mitchell. [address] [place] [address], [id number], [place]. tel:[phone] Referring Provider: Stephen Reyes, [address] [place] [address], [place], [address] . tel:[phone] Offic/outpt E&m [facility], [address] [facility], [place], [place], [id number] , tel: [phone] [facility] URI - UPPER RESP. INFECTION 6 Eric Mitchell. [address] [place] [address], [id number], . tel:[phone] Referring Provider: Stephen Reyes, [address] [place] [address], [address] . tel:[phone] [facility], [address], [place], [place], [id number] , tel: [phone] [facility] No Information Oct-2 6-200 6 Eric Mitchell. [address] [place] [address], [id number], [place]. tel:[phone] Referring Provider: Stephen Reyes, [address] [place] [address], [address] [place] [address] . tel:[phone] Preven Meds E&m Estab Pt; 40-[address] [facility], [address], [place], [place], [id number] , [place] tel: [phone] [facility] HTN, BENIGNASTHMA, UNSPECIFIEDMENOPAU SHANEKA SYMPTOMSHEADACHE,T ENSIONHNP W/MYELOPATHY, LUMBAR Oct-1 9-200 6 Eric Mitchell. [address] [place] [address], [id number], [place]. [phone] Referring Provider: Stephen Reyes, [address] [place] [address], [address] . tel:[phone] Offic/outpt E&m [facility], [address], [place], [place], [id number] , [place] tel: [phone] [facility] ASTHMA, UNSPECIFIEDHTN, BENIGNHNP W/MYELOPATHY, LUMBAR Sep-0 7-200 6 Eric Mitchell. [address] [place] [address], [id number], [place]. tel:[phone] Referring Provider: Stephen Reyes, [address] [place] [address], [address] . tel:[phone] Family History Family Member Type Diagnosis Age At Onset No Information Immunizations Vaccine Date Status Comments Influenza Vaccine administered Source: Ne w Immunization Record Payers Payer name Insurance type Covered alliance party ID Authoriza tion(s) Aetna Choice POS / [...]
== END 2024-10-24 14:59 | disposition home or self-care (01) ==
LOC: HO.MRI 14:58
PROVIDERS: Visit Provider Nurse Practitioner Family
DX: M47.817 Spondylosis without myelopathy or radiculopathy, lumbosacral region (principal); M54.16 Radiculopathy, lumbar region; M54.51 Vertebrogenic low back pain; M81.0 Age-related osteoporosis without current pathological fracture; M43.06 Spondylolysis, lumbar region
CPT/HCPCS: 72148

== ENCOUNTER → 2024-10-24 15:04 | Outpatient (BNV) | payer MEDICARE, MEDICAID, SELFPAY | PROVIDERS: Visit Provider Radiology Diagnostic Radiology | DX: M51.362 Other intervertebral disc degeneration, lumbar region with discogenic back pain and lower extremity pain (principal) | CPT/HCPCS: 72148 ==

== ENCOUNTER 2024-11-04 08:32 | Outpatient (AMB) | payer MEDICARE, MEDICAID, SELFPAY ==
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
[2024-11-04 08:41] VITALS: BP 151/68; PULSE 71; O2SAT 98; BMI 23.3
--- OUTSIDE RECORDS SUMMARY | 2024-11-04 08:53 | XMS_ITS | Continuity of Care Document ---
Author Organization [facility] Address [address] [place] [address] Phone Care Team Providers Care Regional Merchandising Manager Name Role Phone No Information Unavailable Unavailable Allergies, Adverse Reactions, Alerts Substance Reaction Status Criticality hydrocodone GI Upset Active No Information Medications Medication Instructions Dosage Effective Dates (start - stop) Status Comments PSEUDOEPHEDRINE-CHLORPH ENIRAMI 100MG-12MGCPMP 24HR Take one tablet by mouth twice daily as needed. - Active Nasacort AQ 55 mcg Nasal [place] Aerosol Inhale two sprays via nostril daily [...] > Ecg-routine 12 Lead; W/intrpt 6 Spiromtry W/oyxpa-li-gckla García 06 Preven Meds E&m Estab Pt; [...] Date Provider Providers Copied on Encounter Medical [facility] [place], [address] [facility], [place], [place], [id number] , tel: [phone] No Information 0 No Information Offic/outpt E&m [facility], [address] [facility], [place], [place], [id number] , tel: [phone] [facility] URI - UPPER RESP. INFECTION 6 Eric Mitchell. [address] [place] [address], [id number], [place]. tel:[phone] Referring Provider: Stephen Reyes, [address] [place] [address], [place], [address] . tel:[phone] Offic/outpt E&m [facility], [address] [facility], [place], [place], [id number] , tel: [phone] [facility] URI - UPPER RESP. INFECTION 6 Eric Mitchell. [address] [place] [address], [id number], . tel:[phone] Referring Provider: Stephen Reyes, [address] [place] [address], [id number] . tel:[phone] [facility], [address], [place], [place], [id number] , tel: [phone] [facility] No Information Oct-2 6-200 6 Eric Mitchell. [address] [place] [address], [id number], [place]. tel:[phone] Referring Provider: Stephen Reyes, [address] [place] [address], [address] [place] [address] . tel:[phone] Preven Meds E&m Estab Pt; 40-6 [facility], [address], [place], [place], [id number] , [place] tel: [phone] [facility] HTN, BENIGNASTHMA, UNSPECIFIEDMENOPAU SHANEKA SYMPTOMSHEADACHE,T ENSIONHNP W/MYELOPATHY, LUMBAR Oct-1 9-200 6 Eric Mitchell. [address] [place] [address], [id number], [place]. [phone] Referring Provider: Stephen Reyes, [address] [place] [address], [id number] . tel:[phone] Offic/outpt E&m [facility], [address], [place], [place], [id number] , [place] tel: [phone] [facility] ASTHMA, UNSPECIFIEDHTN, BENIGNHNP W/MYELOPATHY, LUMBAR Sep-0 7-200 6 Eric Mitchell. [address] [place] [address], [id number], [place]. tel:[phone] Referring Provider: Stephen Reyes, [address] [place] [address], [id number] . tel:[phone] Family History Family Member Type Diagnosis Age At Onset No Information Immunizations Vaccine Date Status Comments Influenza Vaccine administered Source: Ne w Immunization Record Payers Payer name Insurance type Covered constitution party ID Authoriza tion(s) [employer] Choice POS [...]
== END 2024-11-04 09:24 | disposition home or self-care (01) ==
LOC: HO.PMC 08:33
PROVIDERS: Visit Provider Nurse Practitioner Family
DX: M51.369 Other intervertebral disc degeneration, lumbar region without mention of lumbar back pain or lower extremity pain (principal); M47.817 Spondylosis without myelopathy or radiculopathy, lumbosacral region; M54.16 Radiculopathy, lumbar region; M54.51 Vertebrogenic low back pain; M81.0 Age-related osteoporosis without current pathological fracture; M43.06 Spondylolysis, lumbar region; G89.4 Chronic pain syndrome
CPT/HCPCS: 99214; G2211

== ENCOUNTER → 2024-11-04 08:32 | Outpatient (BNVA) | payer MEDICARE, MEDICAID, SELFPAY | PROVIDERS: Visit Provider Nurse Practitioner Family | DX: M51.360 Other intervertebral disc degeneration, lumbar region with discogenic back pain only (principal); M47.817 Spondylosis without myelopathy or radiculopathy, lumbosacral region; M54.16 Radiculopathy, lumbar region; M54.51 Vertebrogenic low back pain; M81.0 Age-related osteoporosis without current pathological fracture; M43.06 Spondylolysis, lumbar region; G89.4 Chronic pain syndrome | CPT/HCPCS: 99212 ==